=== PATIENT | male | born 1975 | race Caucasian/White ===

== ENCOUNTER 2019-06-12 08:30 | Emergency (ER) | payer OTHER, BC ==
[2019-06-12] MEDS ORDERED: Lidocaine 1% 10 ML MDV INJECT ONE (08:54)
--- NOTE | 2019-06-12 09:00 | EDM.PDOC ---
ED HPI GENERAL MEDICAL PROBLEM - General Chief Complaint: Laceration Stated Complaint: LT LOWER LEG LAC Time Seen by Provider: 06/12/19 08:50 Source of Information: Reports: Patient History Limitations: Reports: No Limitations - History of Present Illness INITIAL COMMENTS - FREE TEXT/NARRATIVE: Patient is a 43-year-old male who presents with complaints of a laceration to his left lower anterior leg. States he hit his leg on an exhaust pipe at work prior to coming to the ER. He states that the exhaust pipe was new and clean. He is up-to-date on his tetanus vaccination. He states it's been within the last couple years. Pt is not on any blood thinning medications. - Related Data Allergies Allergy/AdvReac Type Severity Reaction Status Date / Time Penicillins Allergy Nausea and Verified 06/12/19 08:51 Vomiting Home Meds: Home Meds Lisinopril 10 mg PO DAILY #30 tablet 10/28/13 [Rx] Omeprazole 20 mg PO DAILY 06/12/19 [History] Past Medical History Cardiovascular History: Reports: Hypertension Gastrointestinal History: Reports: GERD Social & Family History - Tobacco Use Smoking Status *Q: Never Smoker - Recreational Drug Use Recreational Drug Use: No ED ROS GENERAL - Review of Systems Review Of Systems: See Below Constitutional: Reports: No Symptoms HEENT: Reports: No Symptoms Respiratory: Reports: No Symptoms Cardiovascular: Reports: No Symptoms Endocrine: Reports: No Symptoms GI/Abdominal: Reports: No Symptoms : Reports: No Symptoms Musculoskeletal: Reports: No Symptoms Skin: Reports: Other (Laceration to left lower leg) Neurological: Reports: No Symptoms Psychiatric: Reports: No Symptoms Hematologic/Lymphatic: Reports: No Symptoms Immunologic: Reports: No Symptoms ED EXAM, SKIN/RASH Exam: See Below Exam Limited By: No Limitations General Appearance: Alert, WD/WN, No Apparent Distress Respiratory/Chest: No Respiratory Distress, Lungs Clear, Normal Breath Sounds, No Accessory Muscle Use Cardiovascular: Normal Peripheral Pulses, Regular Rate, Rhythm, No Murmur Extremities: Other (9 cm slightly curved laceration to left lower anterior leg. Minimal bleeding present.) Neurological: Alert, Oriented, Normal Cognition Psychiatric: Normal Affect, Normal Mood Skin: Warm, Dry, Normal Color, No Rash ED SKIN PROCEDURES - Laceration/Wound Repair Left Lower Anterior Leg Appearance: Subcutaneous, Linear (slightly curved) Distal NVT: Neuro & Vascular Intact Anesthetic Type: Local Local Anesthesia - Lidocaine (Xylocaine): 1% Plain Local Anesthetic Volume: 4cc Skin Prep: Providone-Iodine (Betadine), Saline Exploration/Debridement/Repair: Wound Explored, No Foreign Material Found Closed with: Sutures Lac/Wound length In cm: 9 Suture Size: 4-0 # of Sutures: 10 Suture Type: Nylon Sterile Dressing Applied: Nurse Tetanus Status Addressed: Yes (up to date per pt report) Complications: No Course - Vital Signs Last Recorded V/S: Last Vital Signs Temp 97.5 F 06/12/19 08:40 Pulse 65 06/12/19 08:40 Resp 16 06/12/19 08:40 BP 150/95 H 06/12/19 08:40 Pulse Ox 99 06/12/19 08:40 - Orders/Labs/Meds Orders: Active Orders 24 hr Category Date Time Status Procedure Tray at Bedside [RC] ASDIRECTED Care 06/12/19 08:55 Active Meds: Medications Discontinued Medications Generic Name Dose Route Start Last Admin Trade Name Nora PRN Reason Stop Dose Admin Lidocaine HCl 10 ml 06/12/19 08:54 06/12/19 09:01 Xylocaine 1% INJECT 06/12/19 08:55 10 ml ONETIME ONE Administration Departure - Departure Time of Disposition: 09:31 Disposition: Home, Self-Care 01 Condition: Good Clinical Impression: Laceration - Discharge Information *PRESCRIPTION DRUG MONITORING PROGRAM REVIEWED*: No *COPY OF PRESCRIPTION DRUG MONITORING REPORT IN PATIENT AYSE: No Instructions: Laceration Care, Adult, [id number] Referrals: Brenna Blackwell PA-C [Primary Care Provider] - Forms: ED Department Discharge Additional Instructions: You were seen in the emergency department for a 8 cm laceration to your left lower leg. The wound was cleansed and closed with 10 sutures. The sutures should stay intact for 8-10 days. After that time they may be removed at either the [facility] or the [place] walk-in clinic. The wound should be kept clean and dry. Wash with regular soap and water twice daily and then pat dry. If there is a chance that the wound may become contaminated, cover it with a sterile dressing. Otherwise it may be left open to air. Watch for signs of infection including redness, swelling, or purulent drainage. If these should occur please follow-up with your primary care provider or return to the emergency department. Sepsis Event Note - Evaluation Sepsis Screening Result: No Definite Risk - Focused Exam Vital Signs: Vital Signs Temp Pulse Resp BP Pulse Ox 06/12/19 08:40 97.5 F 65 16 150/95 H 99 Date Exam was Performed: 06/12/19 Time Exam was Performed: 09:33 - My Orders Last 24 Hours: My Active Orders 06/12/19 08:55 Procedure Tray at Bedside [RC] ASDIRECTED - Assessment/Plan Last 24 Hours: My Active Orders 06/12/19 08:55 Procedure Tray at Bedside [RC] ASDIRECTED
== END 2019-06-12 09:51 | disposition home or self-care (01) ==
LOC: JD.ED 08:30
DX: S81.812A Laceration without foreign body, left lower leg, initial encounter (principal); I10 Essential (primary) hypertension; K21.9 Gastro-esophageal reflux disease without esophagitis; Z79.899 Other long term (current) drug therapy; Z88.0 Allergy status to penicillin; W22.8XXA Striking against or struck by other objects, initial encounter; Y99.0 Civilian activity done for income or pay
CPT/HCPCS: 12004; 99282; J2001